=== PATIENT | female | born 1965 | race Caucasian/White ===

== ENCOUNTER 2019-03-29 11:38 | Emergency (ER) | payer MEDICARE, MEDICAID ==
[~2019-03-29] VITALS: Ht 162.6 cm; Wt 62.1 kg
[2019-03-29] MEDS ORDERED: LEVO100T54 PO (12:08)
[2019-03-29] MEDS ORDERED: SING10TA32 PO (12:08)
[2019-03-29] MEDS ORDERED: FLUT50SP33 (12:08)
[2019-03-29] MEDS ORDERED: OMEP20CA3 PO (12:08)
[2019-03-29] MEDS ORDERED: TAB-TAB3 PO (12:08)
[2019-03-29] MEDS ORDERED: CULTCAP2 PO (12:08)
[2019-03-29] MEDS ORDERED: VITAD1000T PO (12:08)
[2019-03-29] MEDS ORDERED: KLON1TAB PO (12:08)
[2019-03-29] MEDS ORDERED: BUSP15TA47 PO ×2 (12:08)
[2019-03-29] MEDS ORDERED: ADVA115A INH (12:08)
[2019-03-29] MEDS ORDERED: LORA-674 PO (12:08)
[2019-03-29] MEDS ORDERED: PX S0.65 NARES (12:08)
[2019-03-29] MEDS ORDERED: LUTE1CAP7 PO (12:08)
[2019-03-29] MEDS ORDERED: AUGM875T28 PO (13:05)
[2019-03-29 13:10] VITALS: BP 145/89
== END 2019-03-29 13:17 | disposition home or self-care (01) ==
LOC: M ED 11:38
DX: J32.9 Chronic sinusitis, unspecified (principal); K21.9 Gastro-esophageal reflux disease without esophagitis; J45.909 Unspecified asthma, uncomplicated; Z79.899 Other long term (current) drug therapy; Z88.2 Allergy status to sulfonamides

== ENCOUNTER → 2022-06-18 | Outpatient (CLI) | payer MEDICARE, MEDICAID ==
[~2022-06-18] MED LIST: ADVA115A INH; AUGM875T28 PO; BUSP15TA47 PO; CHOL100029 PO; CULTCAP2 PO; FLUT50SP33; KLON1TAB PO; LEVO100T54 PO; LORA-674 PO; LUTE1CAP7 PO; OMEP1CAP73 PO; PX S0.65 NARES; SING10TA32 PO; TAB-TAB3 PO
== END ==
LOC: M PLARAD 09:06
PROVIDERS: ATTEND Internal Medicine Pulmonary Disease
DX: R91.1 Solitary pulmonary nodule (principal)
CPT/HCPCS: 78815; A9552

== ENCOUNTER → 2022-11-19 | Outpatient (CLI) | payer MEDICARE, MEDICAID | LOC: M RAD 11:04 | PROVIDERS: ATTEND Internal Medicine Pulmonary Disease | DX: R91.1 Solitary pulmonary nodule (principal) ==